=== PATIENT | male | born 1980 | race Hispanic/Latino ===

== ENCOUNTER 2018-12-22 15:05 | Emergency (ER) | payer SELFPAY ==
[2018-12-22] MEDS ORDERED: ONDANSETRON 4 MG/2 ML VIAL ONE (15:26)
[2018-12-22] MEDS ORDERED: NA CHLORIDE 0.9% 1,000 ML ONE ×3 (15:27→17:04)
[2018-12-22] MEDS ORDERED: MULTIVITAMINS 10 ML VIAL (INJ) IV ONE (15:28)
[2018-12-22] MEDS ORDERED: FOLIC ACID 5 MG/ML VIAL ONE (15:29)
[2018-12-22] MEDS ORDERED: FAMOTIDINE 20 MG/2 ML VIAL IV ONE (15:40)
[2018-12-22 15:51] LABS: Absolute Lymphocytes (CBC) 1.1 K/uL (0.7-4.9); Absolute Neutrophil 17.5 K/uL (1.8-8.0); Basophils % 0.2 % (0-1.3); Lymphocytes % 5.6 % (15.3-44.8); MPV 8.3 fL (7.6-11.3); Monocytes % 5.2 % (3.3-12.3); RBC Red Blood Cell Count 5.51 M/uL (4.33-5.43)
[2018-12-22 16:23] LABS: ALT/SGPT 51 U/L (12-78); AST/SGOT 40 U/L (15-37); Albumin 5.2 g/dL (3.4-5.0); Alkaline Phosphatase 80 U/L (45-117); BUN Blood Urea Nitrogen 16 mg/dL (7-18); Bicarbonate 21 mmol/L (21-32); Bilirubin Direct 0.1 mg/dL (0-0.2); CKMB Creatine Kinase MB 3.8 ng/mL (0.3-3.6); Creatine Phosphokinase 638 U/L (39-308); Glucose Level 90 mg/dL (74-106); Magnesium 2.2 mg/dL (1.8-2.4); Potassium 3.5 mmol/L (3.5-5.1); Protein, Total 9.5 g/dL (6.4-8.2); Sodium Level 131 mmol/L (136-145); Troponin I < 0.02 ng/mL (0.0-0.045)
[2018-12-22 17:12] LABS: Urine Blood TRACE (NEG); Urine Glucose NEGATIVE (NEG); Urine Protein 2+ (NEG); Urine Specific Gravity 1.025 (1.005-1.030)
[2018-12-22 20:00] LABS: Potassium 3.4 mmol/L (3.5-5.1)
--- NOTE | 2018-12-22 20:47 | ER ---
Nurse's Notes [facility] Name: Sylvester Quinones Age: 38 yrs Sex: Male : 1980 Arrival Date: 12/22/2018 Time: 15:10 Bed 26 Private MD: Diagnosis: Acute kidney failure;Dehydration Presentation: 12/22 15:13 Presenting complaint: EMS states: intermittent body cramping with N/V that began today ss at 1000. 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 Transition of care: patient was not received from another setting of care. Onset of symptoms was December 22, 2018. Risk Assessment: Do you want to hurt yourself or someone else? Patient reports no desire to harm self or others. Initial Sepsis Screen: Does the patient meet any 2 criteria? HR > 90 bpm. No. Patient's initial sepsis screen is negative. Does the patient have a suspected source of infection? No. Patient's initial sepsis screen is negative. Care prior to arrival: Pt attempted to hydrate himself with 8 bananas, a gallon of water, gatorade and an orange. 15:13 Method Of Arrival: EMS: [facility] ss 15:13 Acuity: BRYAN 3 ss Historical: - Allergies: 15:17 No Known Allergies; ss - Home Meds: 15:17 None [Active]; ss - PMHx: 15:17 None; ss - PSHx: 15:17 None; ss - Immunization history:: Adult Immunizations unknown. - Social history:: Smoking status: Patient uses tobacco products, 1 pack per week. - Ebola Screening: : Patient denies exposure to infectious person Patient denies travel to an Ebola-affected area in the 21 days before illness onset. Screenin:45 Abuse screen: Denies threats or abuse. Denies injuries from another. Nutritional rv screening: No deficits noted. Tuberculosis screening: No symptoms or risk factors identified. Fall Risk None identified. Assessment: 15:45 General: Appears in no apparent distress. uncomfortable, Behavior is calm, cooperative. rv Pain: Denies pain. Neuro: Level of Consciousness is awake, alert, obeys commands, Oriented to person, place, time, situation. Cardiovascular: Patient's skin is warm and dry. Respiratory: Airway is patent. GI: Pt is actively vomiting undigested food, Reports nausea, vomiting. : No signs and/or symptoms were reported regarding the genitourinary system. EENT: No signs and/or symptoms were reported regarding the EENT system. Derm: Skin is intact. Musculoskeletal: No signs and/or symptoms reported regarding the musculoskeletal system. 18:19 Reassessment: Patient appears in no apparent distress at this time. Patient and/or rv family updated on plan of care and expected duration. Pain level reassessed. Patient is alert, oriented x 3, equal unlabored respirations, skin warm/dry/pink. will finish 3 liters of NS as bolus and do repeat BMP. Patient denies pain at this time. Patient states feeling better. Patient states symptoms have improved. Vital Signs: 15:10 BP 135 / 97; Pulse 96; Resp 21; Pulse Ox 97% ; ss 15:17 Temp 97.6(A); Weight 90.72 kg; Height 5 ft. 10 in. (177.80 cm); ss 16:04 BP 119 / 81; Pulse 82; Resp 16; Temp 98.2; Pulse Ox 98% ; rv 17:00 BP 115 / 71; Pulse 70; Resp 17; Temp 98; Pulse Ox 100% ; rv 17:30 BP 122 / 76; Pulse 73; Resp 17; Pulse Ox 100% ; rv 18:21 BP 121 / 78; Pulse 82; Resp 18; Temp 98; Pulse Ox 100% ; rv 20:30 BP 102 / 62; Pulse 66; Pulse Ox 99% on R/A; jp3 15:17 Body Mass Index 28.70 (90.72 kg, 177.80 cm) ED Course: 15:10 Patient arrived in ED. ss 15:11 Sukumar Payan PA is PHCP. cp 15:11 Elliot Vieira MD is Attending Physician. cp 15:11 Inserted saline lock: 20 gauge in right antecubital area, using aseptic technique. ss ,using aseptic technique. insertion by Jeffry Verdugo RN Blood collected. Patient maintains SpO2 saturation greater than 95% on room air. 15:16 Triage completed. ss 15:17 Arm band placed on right wrist. ss 15:40 EKG done, by ED staff, reviewed by Sukumar SHEPPARD. jp3 15:44 Jeffry Bentley RN is Primary Nurse. rv 15:46 Patient has correct armband on for positive identification. Bed in low position. Call rv light in reach. Side rails up X 1. Adult w/ patient. Pulse ox on. NIBP on. 16:55 Urine collected: clean catch specimen, clear, liset colored. jp3 21:15 No provider procedures requiring assistance completed. IV discontinued, intact, rv bleeding controlled, No redness/swelling at site. Pressure dressing applied. Administered Medications: 15:18 Drug: Zofran 4 mg Route: IVP; Site: right antecubital; ss 21:14 Follow up: Response: No adverse reaction rv 15:22 Drug: Pepcid 20 mg Route: IVP; Site: right antecubital; rv 21:14 Follow up: Response: No adverse reaction rv 15:22 Drug: Banana Bag - (NS 0.9% 1000 ml, foLIC Acid 1 mg, Thiamine 100 mg, Multivitamin 1 ss amp) Route: IV; Rate: 500 ml/hr; Site: right antecubital; 17:14 Follow up: IV Status: Completed infusion rv 16:34 Drug: NS 0.9% 1000 ml Route: IV; Rate: 1 bolus; Site: right antecubital; rv 21:14 Follow up: IV Status: Completed infusion; IV Intake: 1000ml rv 17:14 Drug: NS 0.9% 1000 ml Route: IV; Rate: 1 bolus; Site: right antecubital; rv 21:14 Follow up: IV Status: Completed infusion; IV Intake: 1000ml rv 21:05 Drug: Potassium Effervescent Tablet 50 mEq Route: PO; rv Intake: 21:14 IV: 1000ml; Total: 1000ml. rv 21:14 IV: 1000ml; Total: 2000ml. rv Outcome: 20:47 Discharge ordered by MD. cp 21:15 Discharged to home ambulatory. rv 21:15 Condition: good 21:15 Discharge instructions given to patient, family, Instructed on discharge instructions, follow up and referral plans. medication usage, Demonstrated understanding of instructions, follow-up care, medications, Prescriptions given X 1. 21:23 Patient left the ED. rv Signatures: Claudine Bocanegra, RN RN ss Sukumar Payan PA PA cp Jeffry Bentley RN RN rv Young Millan jp3
--- NOTE | 2018-12-22 20:47 | EDPHYS ---
Physician Documentation [facility] Name: Sylvester Quinones Age: 38 yrs Sex: Male : 1980 Arrival Date: 12/22/2018 Time: 15:10 Bed 26 Private MD: ED Physician Elliot Vieira HPI: 12/22 15:20 This 38 yrs old Male presents to ER via EMS with complaints of Heat Exposure, cp Vomiting. 15:20 The patient presents to the emergency department with nausea, that is moderate, cp vomiting, that is intermittent. Onset: The symptoms/episode began/occurred today. Possible causes: heat exposure. 15:20 Associated signs and symptoms: Pertinent positives: generalized muscle cramps. Severity cp of symptoms: in the emergency department the symptoms have improved mildly. 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 15:20 Patient reports general muscle cramping since 1000 this morning and now having nausea cp and vomiting. Historical: - Allergies: 15:17 No Known Allergies; ss - Home Meds: 15:17 None [Active]; ss - PMHx: 15:17 None; ss - PSHx: 15:17 None; ss - Immunization history:: Adult Immunizations unknown. - Social history:: Smoking status: Patient uses tobacco products, 1 pack per week. - Ebola Screening: : Patient denies exposure to infectious person Patient denies travel to an Ebola-affected area in the 21 days before illness onset. ROS: 17:30 Constitutional: Negative for body aches, chills, fever, poor PO intake. cp 17:30 Eyes: Negative for injury, pain, redness, and discharge. cp 17:30 ENT: Negative for drainage from ear(s), ear pain, sore throat, difficulty swallowing, difficulty handling secretions. 17:30 Cardiovascular: Negative for chest pain, edema, palpitations. 17:30 Respiratory: Negative for cough, shortness of breath, wheezing. 17:30 Abdomen/GI: Positive for nausea, vomiting, Negative for diarrhea, constipation, anorexia, black/tarry stool, rectal bleeding. 17:30 Back: Negative for pain at rest, pain with movement. 17:30 : Positive for decreased urinary output, Negative for hematuria, burning with urination. 17:30 MS/extremity: Positive for generalized muscle cramps, Negative for injury or acute deformity, decreased range of motion, paresthesias. 17:30 Skin: Negative for cellulitis, rash. 17:30 Neuro: Negative for altered mental status, dizziness, headache, syncope, weakness. 17:30 All other systems are negative. Exam: 15:59 ECG was reviewed by the Attending Physician. cp 17:35 Constitutional: The patient appears in no acute distress, alert, awake, cp non-diaphoretic, non-toxic, well developed, well nourished, uncomfortable. 17:35 Head/Face: Normocephalic, atraumatic. cp 17:35 Eyes: Periorbital structures: appear normal, Pupils: equal, round, and reactive to light and accomodation, Extraocular movements: intact throughout, Conjunctiva: normal, no exudate, no injection, Sclera: no appreciated abnormality, Lids and lashes: appear normal, bilaterally. 17:35 ENT: External ear(s): are unremarkable, Ear canal(s): are normal, clear, TM's: dullness, bilaterally, Nose: is normal, Mouth: Lips: moist, Oral mucosa: pink and intact, moist, Posterior pharynx: is normal, airway is patent, no erythema, no exudate, Voice: is normal. 17:35 Neck: ROM/movement: is normal, is supple, without pain, no range of motions limitations, no nuchal rigidity. 17:35 Chest/axilla: Inspection: normal, Palpation: is normal, no crepitus, no tenderness. 17:35 Cardiovascular: Rate: normal, Rhythm: regular, Heart sounds: murmur, not appreciated, Edema: is not appreciated, JVD: is not appreciated. 17:35 Respiratory: the patient does not display signs of respiratory distress, Respirations: normal, no use of accessory muscles, no retractions, no splinting, no tachypnea, labored breathing, is not present, Breath sounds: are clear throughout, no decreased breath sounds, no stridor, no wheezing. 17:35 Abdomen/GI: Inspection: abdomen appears normal, Bowel sounds: active, all quadrants, Palpation: abdomen is soft and non-tender, in all quadrants, voluntary guarding, is not appreciated, involuntary guarding, is not appreciated. 17:35 Back: ROM is normal, CVA tenderness, is absent, vertebral tenderness, is not appreciated. 17:35 Musculoskeletal/extremity: Exam is negative for decreased range of motion, deformity, injury. 17:35 Skin: no rash present. 17:35 Neuro: Orientation: to person, place \\T\\ time. Mentation: is normal, Cerebellar function: is grossly normal, Motor: moves all fours, strength is normal, Sensation: is normal. Vital Signs: 15:10 BP 135 / 97; Pulse 96; Resp 21; Pulse Ox 97% ; ss 15:17 Temp 97.6(A); Weight 90.72 kg; Height 5 ft. 10 in. (177.80 cm); ss 16:04 BP 119 / 81; Pulse 82; Resp 16; Temp 98.2; Pulse Ox 98% ; rv 17:00 BP 115 / 71; Pulse 70; Resp 17; Temp 98; Pulse Ox 100% ; rv 17:30 BP 122 / 76; Pulse 73; Resp 17; Pulse Ox 100% ; rv 18:21 BP 121 / 78; Pulse 82; Resp 18; Temp 98; Pulse Ox 100% ; rv 20:30 BP 102 / 62; Pulse 66; Pulse Ox 99% on R/A; jp3 15:17 Body Mass Index 28.70 (90.72 kg, 177.80 cm) ss MDM: 15:11 Patient medically screened. cp 16:00 Differential diagnosis: gastritis, viral gastroenteritis, gastroenteritis, heat cp exhaustion, rhabdomyolysis, acute kidney failure, dehydration, electrolyte abnormality. 20:46 Data reviewed: vital signs, nurses notes, lab test result(s), EKG, I have discussed the cp patient's presentation/case with the attending Emergency Department Physician; and as a result, I will discharge patient. 20:46 Test interpretation: by ED physician or midlevel provider: ECG. Counseling: I had a cp detailed discussion with the patient and/or guardian regarding: the historical points, exam findings, and any diagnostic results supporting the discharge/admit diagnosis, lab results, radiology results, the need for outpatient follow up, a family practitioner, to return to the emergency department if symptoms worsen or persist or if there are any questions or concerns that arise at home. Response to treatment: the patient's symptoms have markedly improved after treatment, VSS. Nausea markedly improved and vomiting resolved. Patient reports to be feeling better after IV fluids. Kidney function markedly improved after fluids. Will discharge to home for continued monitoring. Patient instructed on need for f/u with family physician before returning to work. 12/22 15:18 Order name: Basic Metabolic Panel 12/22 15:18 Order name: CBC with Diff cp 12/22 15:18 Order name: LFT's cp 12/22 15:18 Order name: Magnesium cp 12/22 15:18 Order name: CK; Complete Time: 16:29 cp 12/22 16:29 Interpretation: Abnormal: CPK 638. cp 12/22 15:18 Order name: Ckmb; Complete Time: 16:29 cp 12/22 15:18 Order name: Troponin I; Complete Time: 16:29 cp 12/22 15:21 Order name: Basic Metabolic Panel; Complete Time: 16:29 EDMS 12/22 15:21 Order name: CBC with Automated Diff; Complete Time: 16:29 EDMS 12/22 16:29 Interpretation: Normal except: WBC 19.7; RBC 5.51; FLORI% 89.0; LYM% 5.6; NEUT A 17.5. cp 12/22 15:21 Order name: Liver (Hepatic) Function; Complete Time: 16:29 EDMS 12/22 15:21 Order name: Magnesium; Complete Time: 16:29 EDMS 12/22 17:06 Order name: Urine Dipstick--Ancillary (enter results); Complete Time: 18:08 ag 12/22 18:09 Order name: BMP: redraw after administration of fluids; Complete Time: 20:44 cp 12/22 20:44 Interpretation: Normal except: K 3.4; CL 106; GLUC 129; CRE 1.51; GFR 51; CA 8.3. 12/22 15:18 Order name: EKG; Complete Time: 15:22 cp 12/22 15:18 Order name: Cardiac monitoring; Complete Time: 15:45 cp 12/22 15:18 Order name: EKG - Nurse/Tech; Complete Time: 17:01 cp 12/22 15:18 Order name: IV Saline Lock; Complete Time: 15:20 cp 12/22 15:18 Order name: Labs collected and sent; Complete Time: 15:20 cp 12/22 15:18 Order name: O2 Per Protocol; Complete Time: 15:45 cp 12/22 15:18 Order name: O2 Sat Monitoring; Complete Time: 15:46 cp 12/22 15:18 Order name: Urine Dipstick-Ancillary (obtain specimen); Complete Time: 17:01 cp EC:59 Rate is 76 beats/min. Rhythm is regular. MO interval is normal. QRS interval is normal. cp QT interval is normal. T waves are Inverted in lead III. Interpreted by me. Reviewed by me. Administered Medications: 15:18 Drug: Zofran 4 mg Route: IVP; Site: right antecubital; ss 21:14 Follow up: Response: No adverse reaction rv 15:22 Drug: Pepcid 20 mg Route: IVP; Site: right antecubital; rv 21:14 Follow up: Response: No adverse reaction rv 15:22 Drug: Banana Bag - (NS 0.9% 1000 ml, foLIC Acid 1 mg, Thiamine 100 mg, Multivitamin 1 ss amp) Route: IV; Rate: 500 ml/hr; Site: right antecubital; 17:14 Follow up: IV Status: Completed infusion rv 16:34 Drug: NS 0.9% 1000 ml Route: IV; Rate: 1 bolus; Site: right antecubital; rv 21:14 Follow up: IV Status: Completed infusion; IV Intake: 1000ml rv 17:14 Drug: NS 0.9% 1000 ml Route: IV; Rate: 1 bolus; Site: right antecubital; rv 21:14 Follow up: IV Status: Completed infusion; IV Intake: 1000ml rv 21:05 Drug: Potassium Effervescent Tablet 50 mEq Route: PO; rv Disposition: 12/22/18 20:47 Discharged to Home. Impression: Acute kidney failure, Dehydration. - Condition is Stable. - Discharge Instructions: Dehydration, Adult, Acute Kidney Injury, Adult, Rehydration, Adult. - Prescriptions for Zofran 4 mg Oral Tablet - take 1 tablet by ORAL route every 12 hours As needed; 20 tablet. - Medication Reconciliation Form, Thank You Letter, Antibiotic Education, Prescription Opioid Use, Work release form form. - Follow up: Private Physician; When: 48 Hours; Reason: Recheck today's complaints. - Problem is new. - Symptoms have improved. - Notes: no work until released by primary physician Addendum: 12/24/2018 19:04 Co-signature as Attending Physician, Elliot Vieira MD. r n Signatures: Dispatcher [employer] [facility] Elliot Vieira MD MD rn Smirch, Shelby, RN RN ss Sukumar Payan PA PA cp Jeffry Bentley, RN RN rv Corrections: (The following items were deleted from the chart) 12/22 20:44 20:44 Normal except: K 3.4; CL 106; GLUC 129; CRE 1.51; GFR 51. cp cp 21:23 20:47 12/22/2018 20:47 Discharged to Home. Impression: Acute kidney failure; rv Dehydration. Condition is Stable. Forms are Medication Reconciliation Form, Thank You Letter, Antibiotic Education, Prescription Opioid Use. Follow up: Private Physician; When: 48 Hours; Reason: Recheck today's complaints. Problem is new. Symptoms have improved. cp
[2018-12-22] MEDS ORDERED: POTASSIUM 25 MEQ EFFERV TAB ONE (21:08)
--- NOTE | 2018-12-23 09:55 | EKG ---
Test Date: 2018-12-22 Test Time: 15:55:22 School Psychology Professor: ELEANOR MEASUREMENT RESULTS: Intervals: Rate: 76 IL: 168 QRSD: 88 QT: 400 QTc: 450 Stuart: P: 34 IL: 168 QRS: 23 T: 1 INTERPRETIVE STATEMENTS: Normal sinus rhythm Nonspecific T wave abnormality Abnormal ECG No previous ECG available for comparison Electronically Signed On 12-23-18 09:54:43 CDT by Ang Ron
== END 2018-12-22 21:23 | disposition home or self-care (01) ==
LOC: ER 15:05
DX: E86.0 Dehydration (principal); N17.9 Acute kidney failure, unspecified; F17.210 Nicotine dependence, cigarettes, uncomplicated
CPT/HCPCS: 36415; 80048; 80076; 81003; 82550; 82553; 83735; 84484; 85025; 93005; 96361; 96365; 96366; 96375; 99285; J2405; J7030